=== PATIENT | female | born 2000 | race Caucasian/White ===

== ENCOUNTER → 2019-10-12 | Outpatient (CLI) | payer BC ==
[~2019-10-12] MED LIST: DEPO-MEDRO20 MG/1 ML IJ; LORTABELXR PO; NORCO 5-325 TA1 EACH PO
== END ==
LOC: M.ULTRA 13:00
PROVIDERS: ATTEND Nurse Practitioner Family
DX: N63.41 Unspecified lump in right breast, subareolar (principal); N63.10 Unspecified lump in the right breast, unspecified quadrant